=== PATIENT | male | born 1985 | race Caucasian/White ===

== ENCOUNTER 2020-04-20 20:59 | Emergency (ER) | payer SELFPAY ==
[2020-04-20 21:06] VITALS: BP 151/101; PULSE 100; RESP 18; TEMP 36.7; O2SAT 100
--- NOTE | 2020-04-20 21:18 | ED.DENTAL ---
HPI - Dental/Oral General Chief complaint: Dental/Oral Stated complaint: L jaw pain Time Seen by Provider: 04/20/20 21:03 Source: RN notes reviewed History of Present Illness HPI Narrative: Patient presents emergency department from home for left-sided dental pain. Patient states symptoms again 4 days ago. States he did notice pain in his left upper tooth with radiation to the left jaw and left ear states that pain is progressively worsened. He denies any fevers or chills nausea vomiting shortness of breath or any other symptoms states she took Excedrin approximately 3 hours ago denies any other symptoms at this time Related Data Allergies Allergy/AdvReac Type Severity Reaction Status Date / Time No Known Allergies Allergy Verified 04/20/20 21:10 Review of Systems Review of Systems: Narrative: Gen.: Denies fevers or chills Eyes: Denies eye pain or visual change ENT: See HPI Respiratory: Denies shortness of breath GI: Denies nausea vomiting Musculoskeletal: Denies neck pain Neuro: Reports left-sided frontal headache denies numbness or tingling Skin: Denies rash Except as documented, all other systems reviewed and negative [facility] Past Medical History Medical History (Updated 04/20/20 @ 21:21 by Lee Winn DO) Patient denies significant medical history Social History Social History (Updated 04/20/20 @ 21:20 by Lee Winn DO) Smoking status: Never smoker Gender identity (if verbalized by the patient): Male Exam Narrative: Exam Narrative: APPEARANCE: No acute distress, nontoxic, resting in bed HEENT: Normocephalic, atraumatic, TMs clear bilaterally, nares patent, oral mucosa moist, airway patent, tooth #13 is carious and tender to palpation with mild erythema of the gum but no swelling or fluctuance there is no overlying swelling of the cheek RESPIRATORY: No respiratory distress MUSCULOSKELETAl: Moves all extremities. NEURO: Awake and alert. Following commands, speech normal, no focal deficits SKIN:: Warm, dry. Normal Color PSYCHIATRIC: Normal affect/mood Course Course Emergency Course: Discussed with patient results of workup and diagnosis. Discussed need for follow-up with primary care, proper use of medication, and reasons to return to the emergency department. Patient understands and agrees to current treatment plan Vital Signs Vital signs: Vital Signs Temperature 98.1 F 04/20/20 21:06 Pulse Rate 100 04/20/20 21:06 Respiratory Rate 18 04/20/20 21:06 Blood Pressure 151/101 H 04/20/20 21:06 Pulse Oximetry 100 04/20/20 21:06 Temperature 98.1 F 04/20/20 21:06 Pulse Rate 100 04/20/20 21:06 Respiratory Rate 18 04/20/20 21:06 Blood Pressure 151/101 H 04/20/20 21:06 Pulse Oximetry 100 04/20/20 21:06 Discharge Plan Discharge Clinical Impression: Dental abscess Patient Disposition: Home, Self-Care Condition: Stable Instructions: Antibiotic Form, Dental Abscess (ED) Additional Instructions: Return for increasing pain fever or any other symptoms of concern Prescriptions: New penicillin V potassium 500 mg tablet 500 mg PO TID Qty: 40 RF: 0 ibuprofen [IBU] 600 mg tablet 600 mg PO Q6H PRN (Reason: pain) Qty: 20 RF: 0 Follow-up/Referrals: [facility] Dental [facility] [Outside] - 2 Days [facility] [Outside] - 2 Days 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
[2020-04-20] MEDS: IBUPROFEN 600 MG TABLET PO (21:31)
[2020-04-20 21:32] VITALS: BP 156/94; PULSE 87; RESP 20; TEMP 37.2; O2SAT 19
[2020-04-20] MEDS: PENICILLIN V POTASSIUM 250 MG TABLET 500 MG PO (21:32)
== END 2020-04-20 21:33 | disposition home or self-care (01) ==
PROVIDERS: Emergency Provider Emergency Medicine
DX: K04.7 Periapical abscess without sinus (principal)
CPT/HCPCS: 99283; A9270

== ENCOUNTER 2020-11-22 14:07 | Emergency (ER) | payer BC, SELFPAY ==
[2020-11-22 14:17] VITALS: BP 147/97; PULSE 92; RESP 18; TEMP 36.8; O2SAT 100
--- NOTE | 2020-11-22 15:02 | ED.DENTAL ---
HPI - Dental/Oral General Chief complaint: Dental/Oral Stated complaint: tooth pain Source: patient and RN notes reviewed Mode of arrival: ambulatory History of Present Illness HPI Narrative: This is a 34-year-old white male who presented to urgent care today complaining of tooth pain. According to patient for the last 2 to 3 days he has had worsening tooth pain. He did note that he used hydrogen peroxide at home to gargle with but lately has been no improvement with his pain. He has also took [id number] Tylenol with no relief. The patient denies SOB, CP, palpitation, extremity numbness, lightheadedness, dizziness, constipation, diarrhea, chills, or fever. He has not seen a dentist as of yet. He denies any injury MD Complaint: tooth pain Teeth map: 1. 16 dental decay 2. 13 dental decay Related Data Allergies Allergy/AdvReac Type Severity Reaction Status Date / Time No Known Allergies Allergy Verified 11/22/20 14:27 Review of Systems Review of Systems: All systems reviewed & are unremarkable except as noted in HPI and below PMFSH Past Medical History Medical History Patient denies significant medical history Social History Social History Smoking status: Never smoker Gender identity (if verbalized by the patient): Male Exam Narrative: Exam Narrative: GENERAL: This is a well-nourished, well-developed patient, in no apparent distress. HEAD: normocephalic, atraumatic. EYES: PERRL. Sclera clear/white. Vision is grossly intact. EARS: External ears normal, auditory canals clear and without drainage, TMs normal without perforation. Hearing grossly intact. NOSE: External nose normal with no obvious nasal discharge, nares without redness, no rhinorrhea. THROAT: Mucous membranes moist, posterior pharynx clear. Dental decay at the third molar and the second bicuspid, NECK: Neck supple, non-tender without lymphadenopathy, masses or thyromegaly. CARDIOVASCULAR: Regular rate and rhythm without murmurs, gallops, or rubs. RESPIRATORY: Clear to auscultation. Breath sounds equal bilaterally. No wheezes, rales, or rhonchi. GASTROINTESTINAL: Abdomen soft, non-tender, nondistended. Bowel sounds are active. No hepato-splenomegaly, or palpable masses. No guarding. SKIN: warm, intact with no suspicious lesions or rash, good texture and turgor. NEURO: awake, alert, and oriented to person, place and time. There were no obvious focal neurologic abnormalities. Steady gait EXTREMITIES: Normal range of motion. No edema. No calf tenderness. Negative Homans sign bilaterally. BACK: Nontender without deformity or crepitance. No flank tenderness. Course Course Emergency Course: Patient will discharge home with antibiotic and pain medication. And instructions to follow-up with the dentist Vital Signs Vital signs: Vital Signs Temperature 98.2 F 11/22/20 14:17 Pulse Rate 92 11/22/20 14:17 Respiratory Rate 18 11/22/20 14:17 Blood Pressure 147/97 H 11/22/20 14:17 Pulse Oximetry 100 11/22/20 14:17 Temperature 98.2 F 11/22/20 14:17 Pulse Rate 92 11/22/20 14:17 Respiratory Rate 18 11/22/20 14:17 Blood Pressure 147/97 H 11/22/20 14:17 Pulse Oximetry 100 11/22/20 14:17 MDM - Dental/Oral Differential Diagnosis Differential diagnosis: Likely dental caries, toothache and dental abscess Discharge Plan Discharge Clinical Impression: Toothache, Dental caries Patient Disposition: Home, Self-Care Condition: Stable Instructions: Antibiotic Form, Toothache (ED) Additional Instructions: Avoid temperature extremes May apply heat or ice to the face Gentle brushing and flossing Antibiotic as directed Tylenol for lesser pain Use ibuprofen regularly Use the medication as provided for severe pain--caution each tablet contains 325 mg of Tylenol--the maximum dose of Tylenol is 4
== END 2020-11-22 15:09 | disposition home or self-care (01) ==
PROVIDERS: Emergency Provider Nurse Practitioner
DX: K02.9 Dental caries, unspecified (principal)
CPT/HCPCS: 99213; G0463